=== PATIENT | female | born 2005 | race Caucasian/White ===

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

== ENCOUNTER 2025-08-10 09:00 | Outpatient (AMB) | payer BC, SELFPAY ==
--- NOTE | 2025-08-10 09:02 | A.OFFVISP_ITS ---
Vital Signs 08/10/25 09:10 Height 5 ft 2.8 in Height percentile 50 Weight 125 lb 8 oz Weight percentile 50 BMI 22.4 BMI percentile 75 Temp 98.3 F Temp Source Oral Pulse 89 Pulse Source Pulse Oximeter BP 102/64 Pulse Oximetry (%) 99 Pediatric Intake Visit Reasons: [facility] 19 year female Correctional Probation Officer Required: No Accompanied by: Mother Allergies No Known Allergies Allergy (Verified 08/10/25 09:12) Medication List - Last Reconciled 08/10/25 by Jaylin Medina MD citalopram 20 mg PO DAILY glucagon 3 mg/actuation (Baqsimi) mg intranasal insulin glargine (Lantus U-100 Insulin) units subcut insulin lispro (Humalog U-100 Insulin) subcut levothyroxine (Synthroid) 50 mcg PO DAILY lidocaine-prilocaine 2.5-2.5 % 1 g topical DAILY norgestimate-ethinyl estradiol 0.18/0.215/0.25 mg-0.035mg (28) (Ortho Tri-Cyclen (28)) 1 tab PO DAILY Dental Screening Dental Screen Date: 08/10/25 Did your child have a dental visit in the last 12 months for preventative care, such as check-ups/dental cleaning?: Yes Was there a time your child needed dental care in the last 12 months, but was not received?: No Was dental information given to patient?: Patient has dentist [facility] 18-21 Year Female last [facility]: 1 yr ago interval: on OCP. doing well. now seeing [facility]. type 1 DM. followed by kae endocrine at [facility]. doing well concerns: increased anxiety sxs- started just before the start of the semester and got worse throughout the semester. butterflies in stomach, worrying excessively. the semester was really intense - she took two lab classes and was studying all the time. home on break now. going to [place] end of August for the semester for study abroad. she is really excited. a friend (sorority sister) will be there with her - they will be roommates. Nutrition well-balanced, healthy diet with good variety/appropriate servings of fruits/vegetables/proteins/dairy. 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 doing well. 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 during the semester studied until she fell asleep - averaged 6 hrs sleep/night. occ took naps when she had time Sleep location: 4-7 years: own bed Safety Car safety: well child 16-17 years: seat belt Bicycle/ATV safety: rides a bicycle and wears a helmet Home Safety: safe practices around pool and water, Has poison control number, Water heater temp <120, Working smoke detector in home, Working carbon monoxide detector in home and Fire Extinguisher in home [facility] Substance Abuse Tobacco History Patient Tobacco Use Status: Never used Tobacco Alcohol History Alcohol intake: never Substance Use History Use of substances other than those prescribed or required for medical reasons: No Pediatric Weight Assessment Diet counseling done: Yes Physical activity counseling done: Yes [facility] Medical History Mena splints Hypothyroidism Type 1 diabetes mellitus Family History Mother No problems noted. Father Depression Anxiety Sister No problems noted. Social History Household Members: Family Housing: House Alcohol intake: never Patient Tobacco Use Status: Never used Tobacco Second Hand Smoke Exposure: No Cognitive needs: No Hearing needs: No Vision needs: No CRAFFT Screening Tool PART A: In the PAST 12 MONTHS, did you: Drink any alcohol (more than few sips)? (Do not count sips of alcohol taken during family or latter day events.): No Smoke any marijuana or hashish?: No Use anything else to get high? (includes illegal drugs, over the counter/prescription drugs, or things that you sniff/yadav?): No PART B: If answered YES to ANY above: Have you ever been in a CAR driven by someone (including yourself) who was high or had been using alcohol or drugs?: No CRAFFT Assessment Charge Crafft: CRAFFT 32506 PHQ-9 Over the last 2 weeks, how often have you been bothered by any of the following problems? Depression Screening Interpretation: Negative Depression Screening Done: Yes Source: Developed by Drs. Francis Bazan, Anna Walton, Joe Katz and colleagues, with an educational santosh from [employer]. Review of Systems Const All systems reviewed & are unremarkable except as noted in HPI and below PE 13-21 years Constitutional General: alert and active Nutritional appearance: well nourished HENMT Ears: Reports external ears normal, TMs normal bilaterally and EAC's normal Teeth: Reports dentition normal Throat: Reports posterior oropharynx normal Eyes Eyes: Reports appearance normal Conjunctivae: Reports conjunctivae normal Pupils: Reports PERRL EOM: Reports EOM intact bilaterally Neck Appearance: Reports normal appearance, no masses and FROM Lymphatic: Reports no lymphadenopathy noted Resp Effort & Inspection: Reports normal respiratory effort Auscultation: Reports clear to auscultation bilaterally Cardio Rate: Reports regular rate Rhythm: Reports regular rhythm Heart sounds: Reports S1 normal and S2 normal (no murmur) GI Palpation: Reports soft, non-tender, no hepatomegaly, no splenomegaly and no masses Auscultation: Reports normal bowel sounds Musc Thoracic/Lumbar Spine: Reports thoracic and lumbar spine normal to inspection Skin General: Reports no rashes or lesions noted Neuro General: Reports oriented Motor Exam: Reports normal strength and tone (CN 2-12 grossly normal) and normal gait and balance Assessment & Plan Assessment & Plan (1) Encounter for well adult exam with abnormal findings: Code(s): Z00.01 - Encounter for general adult medical examination with abnormal findings Plan: Discussed age-appropriate AG including peer relationships/peer pressure, family relationships, abstinence/safe sex, healthy relationships/sexuality, internet safety, drug/alcohol/cigarette/vaping/marijuana avoidance, sleep, healthy diet, importance of daily physical activity, mood, stress management, conflict management, driving safety, seatbelt use, dental health, future plans, gun safety (2) Anxiety and depression: Code(s): F41.9 - Anxiety disorder, unspecified; F32.A - Depression, unspecified Category: Medical Plan: discussed options. SDM will increase citalopram to 30 mg daily. recheck 1 mo/sooner prn new or worsening sxs (3) Hypothyroidism: Code(s): E03.9 - Hypothyroidism, unspecified Category: Medical Plan: continue current regimen (4) Type 1 diabetes mellitus: Comment: dxd age 2. sees [facility] peds endocrine Code(s): E10.9 - Type 1 diabetes mellitus without complications Category: Medical Plan: f/u with endo Medications: Changed From citalopram 20 mg PO DAILY 90 tabs 1RF To citalopram 30 mg (1.5 x 20 mg) PO DAILY 45 tabs 1RF 30 days Patient Instructions: Take meds as prescribed and spend a minimum of 60 minutes daily on ?feel-good activities?.? Limit screen time to two hours or less.? f/u in 1 month. Call CRISIS for any severe mood concerns especially any suicidal thoughts.? Coding Level of Care Code Est Pt Prev Care 18-39y(28065) Diagnoses Encounter for well adult exam with abnormal findings Z00.01 Anxiety and depression F41.9; F32.A Hypothyroidism E03.9 Type 1 diabetes mellitus E10.9 Additional Codes CRAFFT Assessment Charge - Crafft: CRAFFT 82777 ([id number]) ARGELIA-7 Assessment Billing - ARGELIA-7 Assessment Tool: ARGELIA-7 Assessment 01364 ([id number]) PHQ Assessment Billing - PHQ Assessment Tool: PHQ Assessment 20087 ([id number]) Thrive Questionnaire Date Thrive assessed: 08/10/25 I am a: Patient What is your living situation today?: I have a steady place to live Within the past 12 months, did the food you bought not last and you didn't have the money to get more?: Never true Within the past 12 months, did you worry whether your food would run out before you got money to buy more?: Never true Do you have trouble paying for medicines?: No Do you have trouble getting transportation to medical appointments?: No Do you have trouble paying your heating and electricity bill?: No Do you have trouble taking care of your child, family member or friend?: No Do you have trouble with day-to-day activities such as bathing, preparing meals, shopping, managing finances, etc.?: No Are you currently unemployed and looking for a job?: No Are you interested in more education?: Yes Please select the resources that you would like help with: None THRIVE Score: 0 ARGELIA-7 AMB Questionnaire ARGELIA-7 Date ARGELIA - 7 assessed: 08/10/25 Feeling nervous, anxious, or on edge: 0 = Not at all Not being able to stop or control worryin = Not at all Worrying too much about different things: 0 = Not at all Trouble relaxin = Not at all Being so restless that it is hard to sit still: 0 = Not at all Becoming easily annoyed or irritable: 0 = Not at all Feeling afraid as if something awful might happen: 0 = Not at all Total ARGELIA-7 score (0-4 normal; 5-9 mild; 10-14 moderate; 15-21 severe): 0 Source: Developed by Drs. Francis Bazan, Anna Walton, Joe Katz and colleagues, with an educational santosh from [employer]. ARGELIA-7 Assessment Billing ARGELIA-7 Assessment Tool: ARGELIA-7 Assessment 76026 PHQ-9: Modified for Teens Feeling down, depressed, irritable or hopeless?: Not at all Little interest or pleasure in doing things?: Not at all Trouble falling asleep, staying asleep, or sleeping too much?: Not at all Poor appetite, weight loss or overeating?: Not at all Feeling tired, or having little energy?: Several Days Feeling bad about yourself-or feeling that you are a failure, or that you let yourself/your family down?: Not at all Trouble concentrating on things like school work, reading, or watching TV?: Not at all Moving/speaking so slowly that other people have noticed? Or the opposite-being so fidgety that you were moving more than usual?: Not at all Thoughts that you would be better off , or of hurting yourself in some way?: Not at all In the past year have you felt depressed or sad most days, even if you felt okay sometimes?: No How difficult have these problems made it for you to do your work, take care of things at home, or get along with other?: Not difficult at all Has there been a time in the past month when you have had serious thoughts about ending your life?: No Have you ever, in your entire life, tried to kill yourself or made a suicide attempt?: No Score: 1 Depression Screening Interpretation: Negative Depression Screening Done: Yes PHQ Assessment Billing PHQ Assessment Tool: PHQ Assessment 66881
[2025-08-10 09:10] VITALS: BP 102/64; PULSE 89; TEMP 36.8; O2SAT 99; BMI 22.4
--- OUTSIDE RECORDS SUMMARY | 2025-08-10 10:09 | XMS_ITS ---
Author Name [facility] Organization Unknown History of Medication Use Medication Directions Dispensed Refills Start Date End Date Stat citalopram (CeleXA) 20 MG tablet 09/09/2024 active Tri-Sprintec 0.18/0.215/0.25 MG-35 MCG per tablet Take 1 tablet by mouth. 07/21/2024 active insulin glargine (Lantus) 100 units/mL injection See Instructions, Subcutaneous Infusion Daily in case of pump failure. Max daily dose 50 units. 90 day supply., # 60 mL, 11 Refills, Maintenance, 03/04/24 10:31:00 AM EDT, [facility], Partial fill upon patient request if the prescription is for a schedule II opioid drug., 159.2, cm, 03/04/2024 active glucagon powder (Baqsimi One Pack) intranasal device See Instructions, USE 3 MG IN LEFT NOSTRIL ONCE. 90 day supply, # 1 each, 4 Refills, 01/02/24 9:55:00 PM EDT, [facility], 158, cm, 01/02/24 15:15:00 EDT, Height, 50.1, kg, 01/02/24 15:15:00 EDT, Dry Weight 01/02/2024 active HumaLOG 100 UNIT/ML injection INJECT UP TO 100 UNITS DAILY INSTRUCTED FOR INSULIN PUMP active levothyroxine (SYNTHROID, LEVOTHROID) 50 MCG tablet Take 1 tablet (50 mcg total) by mouth. active Immunizations Vaccine Date Source Lot Number Status Influenza, Trivalent (FLUCEL VAX) MDCK, Preservative Free IM 06/24/2025 [facility] [id number] completed Influenza, Trivalent (FLUCEL VAX) MDCK, Preservative Free IM 06/04/2024 [facility] [id number] completed Encounters Encounter Type Encounter Reason Primary Diagnosis Location Date Ambulatory [facility] 06/24/2025 Ambulatory Other Other [facility] 09/23/2024 Ambulatory [facility] 06/04/2024 Care Team Organization Name Specialty Phone Email Start Date End [facility] Primary Care 06/24/2025 07/23/2025 [employer] [facility] Primary Care 06/24/2025 [facility] 06/06/2024 07/23/2025 [facility] 05/12/2024
--- OUTSIDE RECORDS SUMMARY | 2025-08-10 10:09 | XMS_ITS | Encounter Summary ---
Author Organization [facility] Address [address] [place] [address] Care Team Providers Care Intelligence Operations Specialist Name Role Phone Unknown Primary Care Provider Jaylin Medina MD Primary Care Provider [phone] Encounter Details Date Type Department Care Team (Late st Contact Info) Description 09/23/2024 Scanned Document [facility] Primary Care [address] and [facility], [address] [place] [phone] Pcp, No Social History Tobacco Use Types Packs/Day Years Used Date Smoking Tobacco: Never Smokeless Tobacco: Never Alcohol Use Standard Drinks/Week Comments Never 0 (1 standard drink = 0.6 oz pur e alcohol) PHQ-2 Answer Date Recorded PHQ-2 Total Score 0 09/23/2024 Comments Unknown Sex and Gender Information Value Date Recorded Sex Assigned at Female 06/03/2024 1:26 PM EDT Legal Sex Female 6:02 PM EDT Gender Identity Female 06/03/2024 1:26 PM EDT Sexual Orientation Heterosexual (straight) 06/03 1:26 PM EDT documented as of this encounter Functional Status * Over the past 2 weeks, how often have you been bothered by any of the following problems? Question Answer Date of Assessment Author Patient Health Questionnaire-2 Score 0 08/27 5:10 PM EST Prior, YENY Montiel * Question Answer Date of Assessment Author Patient Health Questionnaire-9 Score 2 08/27 5:10 PM EST Prior, YENY Montiel * Question Answer Date of Assessment Author PHQ-2 Total Score 0 09/23/2024 5:10 PM EST Prior, YENY Montiel Little interest or pleasure in doing things Not at all 09/23/2024 5:10 PM EST Prior, YENY Montiel Feeling down, depressed, or hopeless Not at all 09/23/2024 5:10 PM EST Prior, YENY Montiel Trouble falling or staying asleep, or sleeping too much Several days 09/23/2024 5:10 PM EST Prior, YENY Montiel Feeling tired or having little energy Several days 09/23/2024 5:10 PM EST Prior, YENY Motniel Poor appetite or overeating Not at all 09/23/2024 5:10 PM EST Prior, YENY Montiel Feeling bad about yourself - or that you are a failure or have let yourself or your family down Not at all 09/23/2024 5:10 PM EST Prior, YENY Montiel Trouble concentrating on things, such as reading the newspaper or watching television Not at all 09/23/2024 5:10 PM EST Prior, YENY Montiel Moving or speaking so slowly that other people could have noticed? Or the opposite - being so fidgety or restless that you have been moving around a lot more than usual. Not at all 09/23/2024 5:10 PM EST Prior, YENY Montiel Thoughts that you would be better off or hurting yourself in some way Not at all 09/23/2024 5:10 PM EST Prior, YENY Montiel How difficult have these problems made it for you to do your work, take care of things at home, or get along with other people? Not difficult at all 09/23/2024 5:10 PM EST Prior, YENY Montiel PHQ-9 Total Score 2 09/23/2024 5:10 PM EST Prior, YENY Montiel documented as of this encounter Plan of Treatment Not on file documented as of this encounter Visit Diagnoses Not on filedocumented in this encounter Care Teams Intelligence Operations Specialist Relationship Specialty Start Date End Date Unknown Unknow Provider Address PCP - General 06/03/24 11/12/24 Jaylin Medina MD [address] [place] [address] PCP - General 11/13/24 documented as of this encounter
--- OUTSIDE RECORDS SUMMARY | 2025-08-10 10:09 | XMS_ITS | Clinical Summary ---
Author Organization [facility] Address [address] [place] [phone] Phone Care Team Providers Care Commission Associate Name Role Phone Unknown, Unknown Primary Care Provider Maggie pérez Social History Tobacco Use Types Packs/Day Years Used Date Smoking Tobacco: Never Assessed Education Answer Date Recorded Are you interested in more education? Not on megan e 12/21/2022 Are you concerned about learning? Not on file 12/21/2022 No 12/21/2022 No 12/21/2022 Digital Access Answer Date Recorded No 01/21/2023 No 01/21/2023 No 01/21/2023 Reliable internet access at home? Not on file 01/21/2023 Device with a working camera? Not on file Comments Unknown Sex and Gender Information Value Date Recorded Sex Assigned at Not on file Legal Sex Female 11:10 AM EST Gender Identity Not on file Sexual Orientation Not on file Plan of Treatment Health Maintenance Due Date Last Done Comments MMR VACCINES (1 of 1 - Standard series) 2006 BMI ASSESSMENT 2008 DEVELOPMENTAL/BEHAVIORAL SCREENING (PHQ, PSC, or SWYC) 2008 COMBINED DTaP,Tdap,Td (2 - Td or Tdap) 06/12/2017 05/15/2017 DEPRESSION SCREENING 2017 SMOKING Hx and SMOKELESS TOBACCO SCREENING 2018 VARICELLA VACCINES (1 of 2 - 13+ 2-dose series) 2018 CHLAMYDIA SCREENING 2021 MENINGOCOCCAL VACCINES (B) (1 of 2 - Standard) 2021 ADOLESCENT UNIVERSAL LIPID SCREENING 2022 HEPATITIS C SCREENING 12/04/2023 HIV ONE-TIME SCREENING (18-65 YEARS) 12/04/2023 HEPATITIS B VACCINES (1 of 3 - 19+ 3-dose series) 2024 INFLUENZA VACCINE (#1) 2025 , 06/01/2020, 05/26/2019, Additional history exists COVID-19 VACCINE (2024- season) 2025 02/10/2021, 01/20/2021 MENINGOCOCCAL VACCINES (ACWY) Aged Out 05/15/2017 No longer eligible based on patient's age to complete this topic HPV VACCINES Completed 05/26/2019, 05/14/2018 HEPATITIS A VACCINES Aged Out No long er eligible based on patient's age to complete this topic HIB VACCINES Aged Out No longer eligi ble based on patient's age to complete this topic PNEUMOCOCCAL VACCINES (0-49 years) Aged Out No longer eligible based on patient's age to complete this topic Medical Devices [place] [address] [employer] [place] [address] [employer] [place] [address] [employer] [place] [address] [employer] [address] [employer] [place] [place] [address] [employer] [place] [place] [address] [employer] [place] [address] [employer] [place] [place] [address] [employer] [address] [employer] [place] [address] [employer] [place] [place] [address] [employer] [place] [address] [employer] B[employer] [address] [employer] [address] [employer] [address] [employer] Care Teams Commission Associate Relationship Specialty Start Date End Date Unknown, Unknown, PCP - General 07/10/16 Additional Source Comments The information contained in this document represents components of the legal health record. It is not the complete legal health record.[facility]
--- OUTSIDE RECORDS SUMMARY | 2025-08-10 10:10 | XMS_ITS | Clinical Summary ---
Author Organization [facility] Address [address] [place] [address] Care Team Providers Care Corn Popper Name Role Phone Jaylin Medina MD Primary Care Provider [phone] Allergies No known active allergies Medications citalopram (CeleXA) 20 MG tablet 5 Active levothyroxine (SYNTHROID, LEVOTHROID) 50 MCG tablet Take 1 tablet (50 mcg total) by mouth. Active HumaLOG 100 UNIT/ML injection INJECT UP TO 100 UNITS DAILY INSTRUCTED FOR INSULIN PUMP Active Tri-Sprintec 0.18/0.215/0.25 MG-35 MCG per tablet Take 1 tablet by mouth. 4 Active insulin glargine (Lantus) 100 units/mL injection See Instructions, Subcutaneous Infusion Daily in case of pump failure. Max daily dose 50 units. 90 day supply., # 60 mL, 11 Refills, Maintenance, 03/04/24 10:31:00 AM EDT, [facility], Partial fill upon patient request if the prescription is for a schedule II opioid drug., 159.2, cm, 03/03/24 11:44:00 EDT, Height, 51.35, kg, 03/03/24 11:44:00 EDT, Dry Weight 4 Active glucagon powder (Baqsimi One Pack) intranasal device See Instructions, USE 3 MG IN LEFT NOSTRIL ONCE. 90 day supply, # 1 each, 4 Refills, 01/02/24 9:55:00 PM EDT, [facility], 158, cm, 01/02/24 15:15:00 EDT, Height, 50.1, kg, 01/02/24 15:15:00 EDT, Dry Weight Active Active Problems No known active problems Encounters Date Type Department Care Team Description 06/24/2025 12:00 PM EDT Immunization [facility] from Last 3 Months Immunizations Immunization Administration Dates Next Due Influenza, Trivalent (FLUCEL VAX) MDCK, Preservative Free IM 06/24/2025,06/04/2024 Family History Medical History Relation Name Comments [...] 77 09/23/2024 5:06 PM EST Temperature 37 C (98.6 F) 09/23/2024 5:06 PM EST Respiratory Rate 16 09/23/2024 5:06 PM EST Oxygen Saturation 98% 09/23/2024 5:06 PM EST Inhaled Oxygen Concentration - - Weight - - Height - - Body Mass Index - - Plan of Treatment Health Maintenance Due Date Last Done Comments Hepatitis C Virus Screening 2005 HIV Screening 2018 HPV Vaccines (1 - 3-dose series) 2020 DTaP/Tdap/Td Vaccines (1 - Tdap) 2024 Hepatitis B Vaccines (1 of 3 - 19+ 3-dose series) 2024 COVID-19 Vaccine ( - 2024- season) 2025 Influenza Vaccine Completed 06/24/2025, , 06/01/2020, Additional history exists Pneumococcal Vaccine: Pediatric (0-5 Years) and At-Risk Patients (6 to 49 Years) Aged Out No longer eligible based on patient's age [place] [phone] [facility] Care Teams Corn Popper Relationship Specialty Start Date End Date [place] [address] PCP - General 11/13/24
== END 2025-08-10 09:35 | disposition home or self-care (01) ==
LOC: HO.HMCP 09:01
PROVIDERS: PCP Pediatrics; Visit Provider Pediatrics
DX: Z00.01 Encounter for general adult medical examination with abnormal findings (principal); F41.9 Anxiety disorder, unspecified; F32.A Depression, unspecified; E10.9 Type 1 diabetes mellitus without complications; E03.9 Hypothyroidism, unspecified

== ENCOUNTER → 2025-08-10 09:00 | Outpatient (BNVA) | payer BC, SELFPAY | PROVIDERS: PCP Pediatrics; Visit Provider Pediatrics | DX: Z00.01 Encounter for general adult medical examination with abnormal findings (principal); F41.9 Anxiety disorder, unspecified; F32.A Depression, unspecified; E03.9 Hypothyroidism, unspecified; E10.9 Type 1 diabetes mellitus without complications; Z79.899 Other long term (current) drug therapy; Z13.31 Encounter for screening for depression; Z13.39 Encounter for screening examination for other mental health and behavioral disorders | CPT/HCPCS: 96127; 96160 ==